=== PATIENT | female | born 1985 | race African-American/Black ===

== ENCOUNTER 2019-08-24 16:34 | Emergency (ER) | payer SELFPAY ==
[2019-08-24 16:44] VITALS: BP 130/86
--- NOTE | 2019-08-24 16:55 | ER Document Report ---
HPI - HPI Patient complains to provider of: Subscapular pain Time Seen by Provider: 08/24/19 16:45 Onset: Last week Onset/Duration: Waxing and waning Quality of pain: No pain Associated Symptoms: None Exacerbated by: Denies Similar symptoms previously: No Recently seen / treated by doctor: No - ROS ROS below otherwise negative: Yes Systems Reviewed and Negative: Yes All other systems reviewed and negative - EENT EENT: REPORTS: Sore Throat Past Medical History - General Information source: Patient - Social History Smoking Status: Current Every Day Smoker Cigarette use (# per day): No Chew tobacco use (# tins/day): No Smoking Education Provided: No Frequency of alcohol use: None Lives with: Alone Family History: None Patient has suicidal ideation: No Patient has homicidal ideation: No - Past Medical History Cardiac Medical History: Reports: None Pulmonary Medical History: Reports: None EENT Medical History: Reports: None Neurological Medical History: Reports: None Endocrine Medical History: Reports: None Vertical Provider Document - CONSTITUTIONAL Agree With Documented VS: Yes - HEENT HEENT: Atraumatic, Conjuctival Injection, Normocephalic, PERRLA - NECK Neck: Normal Inspection, Supple - CARDIOVASCULAR Cardiovascular: Regular Rate, Regular Rhythm - GI/ABDOMEN Gastrointestinal: Abdomen Soft, Abdomen Non-Tender - REPRODUCTIVE Female Genitalia: Normal Inspection - BACK Back: Normal Inspection - MUSCULOSKELETAL/EXTREMETIES Musculoskeletal/Extremeties: MAEW Notes: This patient has a palpable spasm to the subscapular aspect of her left clavicle she frequently picks up her 37-year-old grandson and she has pain to that area when she does so. - NEURO Level of Consciousness: Awake, Alert Course - Re-evaluation Re-evalutation: 08/24/19 16:52 Patient has reproducible discomfort and palpable spasm to the subscapular aspect of the left clavicle.She has no chest pain or shortness of breath no exertional chest pain or exertional shortness of breath - Vital Signs Vital signs: Temp Pulse Resp BP Pulse Ox 98.8 F 73 14 130/86 H 97 08/24/19 16:43 08/24/19 16:43 08/24/19 16:43 08/24/19 16:43 08/24/19 16:43 Discharge - Discharge Clinical Impression: Muscle spasm Condition: Good Disposition: HOME, SELF-CARE Instructions: Muscle Strain ([facility]) Prescriptions: Ibuprofen [Motrin 600 Mg Tablet] 600 mg PO TID #15 tablet Methocarbamol [Robaxin 750 mg Tablet] 750 mg PO ASDIR PRN #40 tablet PRN Reason:
== END 2019-08-24 17:00 | disposition home or self-care (01) ==
LOC: ER 16:34
DX: M62.838 Other muscle spasm (principal)
CPT/HCPCS: 99283